=== PATIENT | female | born 1960 | race Caucasian/White ===

== ENCOUNTER → 2024-08-03 09:05 | Outpatient (REF) | payer BC, SELFPAY ==
[2024-08-03 10:50] LABS: Free T4 1.41 ng/dl (0.78-2.19)
[2024-08-03 11:05] LABS: TSH 0.32 uIU/ml (0.47-4.68)
== END ==
LOC: REG 09:05
PROVIDERS: ATTENDING PHYSICIAN Internal Medicine Endocrinology, Diabetes & Metabolism; FAMILY PHYSICIAN Family Medicine
DX: E03.9 Hypothyroidism, unspecified (principal)
CPT/HCPCS: 36415; 84439; 84443

== ENCOUNTER → 2025-07-26 08:52 | Outpatient (REF) | payer BC, SELFPAY ==
[2025-07-26 10:37] LABS: TSH 2.25 uIU/ml (0.47-4.68)
== END ==
LOC: REG 08:52
PROVIDERS: ATTENDING PHYSICIAN Internal Medicine Endocrinology, Diabetes & Metabolism; FAMILY PHYSICIAN Family Medicine
DX: E03.9 Hypothyroidism, unspecified (principal)
CPT/HCPCS: 36415; 84439; 84443